=== PATIENT | female | born 1955 | race Caucasian/White ===

== ENCOUNTER 2024-08-30 07:02 | Day surgery (SDC) | payer MEDICARE, OTHER, SELFPAY ==
[2024-08-30] VITALS (9 sets, daily range): BP systolic 128–155; BP diastolic 43–89; PULSE 86–108; RESP 12–19; TEMP 36.2–36.8; O2SAT 93–99; BMI 27.9
[2024-08-30] MEDS: ACETAMINOPHEN 325 MG TABLET 975 MG PO (07:57)
[2024-08-30] MEDS: LACTATED RINGERS 1,000 ML 42 ML IV ×2 (07:57→10:50)
--- NOTE | 2024-08-30 08:00 | PM.PREOP ---
Pre-operative Note Interval Note History & Physical reviewed/Exam performed by Physician: Yes Changes to H&P: No H&P completed within 30 days and has changed as indicated here:: Skin wrinkles present. Soft tissues appropriate to proceed with surgery.
[2024-08-30] MEDS: CEFAZOLIN 2 GM/100 ML PREMIX 100 ML IV (08:55)
--- NOTE | 2024-08-30 09:29 | SUR.OPER ---
Lateral on a edouard bag, head on pillow, gel axillary roll in place, bottom leg bent with gel pad under knee to foot, upper leg straight and supported with bath blankets. Upper arm supported by pillows and secured over bottom arm to padded arm board. Safety belt at hip, tape over blanket lower legs. Tape across upper torso.
[2024-08-30] MEDS: BUPIVACAINE 0.25% W/ EPI 30 ML VIAL 60 ML INJ (09:37)
--- NOTE | 2024-08-30 11:15 | DI.RAD.S_ITS ---
PROCEDURE: XR FOOT RT MIN 3V INDICATIONS: CALCANOUS REPAIR TECHNIQUE: 9 fluoroscopic views of the foot were acquired. COMPARISON: [facility], [place], CT LOWER EXTREMITY RIGHT WITHOUT CONTRAST, 08/21/2024, 16:30. FINDINGS: Screw fixation at the lateral calcaneus. Comminuted calcaneal fracture. IMPRESSION: Intraoperative guidance. Dictated by: Win Virgen M.D. on 08/30/2024 at 13:35 Approved by: Win Virgen M.D. on 08/30/2024 at 13:38
--- NOTE | 2024-08-30 12:29 | SUR.PHASEI ---
Report given to Mandi
--- NOTE | 2024-08-30 12:42 | P.OP_ITS ---
Operative Date/Time/Diagnoses Date of procedure: 08/30/24 Time of procedure: 08:45 Pre-op diagnosis: Displaced intra-articular fracture right calcaneus Post-op diagnosis: same Procedure & Clinicians Procedure: Open reduction internal fixation calcaneus fracture right CPT code 91192 Same procedure(s) as scheduled: Yes Indications: The patient is a 68-year-old female that had a fall sustaining a displaced intra-articular right calcaneus fracture. She was indicated for open reduction internal fixation of the fracture to restore alignment of the subtalar joint posterior facet and reduce the risks of posttraumatic arthritis and dysfunction. The risks and benefits of the procedure have been discussed with the patient and given the opportunity to ask questions. The risks of surgery include but are not limited to infection, malunion, nonunion, persistence of pain, damage to nerves and blood vessels, posttraumatic arthritis, DVT, PE, cardiopulmonary complications and . The patient expressed a thorough understanding of the risks and benefits of surgery and has elected to proceed. Consent was signed . Surgeon: Eileen Frank Click Yes if Unassisted: Yes Anesthesia Type: General, Peripheral nerve block and Local Operative Notes Findings: Displaced intra-articular calcaneus fracture Victoria type 2 additional impaction fracture from posterior process talus. Comminuted calcaneus fracture this was reduced and secured with 1st a 3.5 cannulated lag screw from the Arthrex set followed by a small Arthrex right parameter plate and appropriate compression locking and locking screws Closure Type: primary Specimen(s): none sent Prosthetic devices, grafts, tissues, transplants, or devices: Arthrex small perimeter plate right with locking compression screws and locking screws 1x 4.0 x 32 mm cancellous screw Applied: other (Splint) Estimated Blood Loss (mL): 50 Blood products transfused: none Tourniquet time (min): 90 Procedure in detail: Patient was seen in the preoperative area the site of surgery and informed consent were confirmed. This was the right foot. The site of surgery was marked in the patient questions were answered. A regional anesthetic block was placed by the anesthesia team for postoperative pain control. Patient was then brought to the operating room by the anesthesia team positioned supine on the operative table. General anesthesia was obtained. Tourniquet was placed on the upper aspect of the thigh and well padded. An SCD placed on the contralateral lower extremity. The patient was positioned into the lateral position on a beanbag with an axillary bump in appropriate well-padded extremities. The patient's operative leg was then prepped and draped in the standard sterile fashion. Formal time-out procedure was performed confirming the patient's side and site of surgery and administration of appropriate preoperative antibiotics. Implants were present in the room and accounted for. Exsanguination with an Esmarch tourniquet was then inflated to 250 mmHg. At that time the lateral extensile approach was performed. Full-thickness flaps were raised using a no-touch technique. Peroneal tendons were elevated off the lateral wall of the calcaneus. Distally the incision curved towards the calcaneal cuboid joint. The lateral wall was osteotomized and removed. 2 K- wires were used to retract the skin flap into the distal fibula talar neck. Schanz pin was then placed in the calcaneal tuberosity to manipulate the tuberosity. The displaced lateral half of the posterior facet was mobilized and taken to the back table and cleaned of hematoma. K-wires were placed in as joysticks. The anterior component of the fracture was reduced and held with guide pins. Additionally K-wire was placed across the medial part of the posterior facet where there was a nondisplaced fracture to hold this in place. Then the she has been was used to manipulate the tuberosity out of varus and a K-wire placed from the tuberosity across the calcaneus to hold this position. This reestablished the medial column. The displaced lateral posterior facet piece was then brought back into the field. In the posterior facet was reduced. And pinned in place. This was confirmed on intraoperative Broden views. 3.5 lag screws placed across the fragment lateral wall was placed and a perimeter plate placed. This was secured with nonlocking and locking screws. Lateral x- ray confirmed adequate positioning the calcaneus and Broden views confirmed appropriate reduction of the posterior facet. Final x-rays were taken. All heel axial views were obtained confirming appropriate screw length and placement. Additional oblique view of the foot confirmed hardware placement outside of the calcaneocuboid joint. The tourniquet was released and hemostasis was achieved once that was completed a medium Hemovac drain was placed. The flap was repaired in a layered fashion using 0 Vicryl 4-0 Monocryl 3-0 nylon and 4-0 nylon. donati sutures were used in the skin. The flap was closed without difficulty or tension. Dermabond was applied. Then the Hemovac drain was removed at the end of the closure once it was noted to no longer be collecting 0.25% Marcaine was injected for local anesthesia. And Xeroform gauze Webril and a bulky Phan splint was applied Patient was woken from anesthesia and taken to recovery room. Complications: none Post-operative Condition: stable Disposition: PACU Plan for aftercare: Nonweightbearing right lower extremity 8-10 weeks. Elevate above the heart level for the next week or 2 as much as possible. Keep splint clean dry and intact. Aspirin 325 mg daily starting postop day 1 for DVT prophylaxis.
== END 2024-08-30 13:12 | disposition home or self-care (01) ==
PROVIDERS: Referring Provider Orthopaedic Surgery Foot and Ankle Surgery; Visit Provider Orthopaedic Surgery Foot and Ankle Surgery
PROC: (CPT 28415; principal; 2024-08-30 08:45)
DX: S92.061A Displaced intraarticular fracture of right calcaneus, initial encounter for closed fracture (principal); S92.131A Displaced fracture of posterior process of right talus, initial encounter for closed fracture; G89.18 Other acute postprocedural pain; I10 Essential (primary) hypertension; W11.XXXA Fall on and from ladder, initial encounter; Z87.891 Personal history of nicotine dependence
CPT/HCPCS: 28415; 64450; 73630; 76000; C1713; J0690; J1100; J1885; J2250; J2405; J2704; J3010